=== PATIENT | female | born 1965 | race Two or more races ===

== ENCOUNTER 2018-12-14 12:37 | Emergency (ER) | payer BC, OTHER ==
[2018-12-14 12:55] VITALS: BP 149/89; PULSE 69; TEMP 98; BMI 27.4
--- NOTE | 2018-12-14 13:21 | PDOC ---
History of Present Illness - General Chief Complaint: Injury Stated Complaint: FALL/HEAD INJURY Time Seen by Provider: 12/14/18 12:56 History Source: Patient Exam Limitations: No Limitations Past History - Past Medical History Allergies/Adverse Reactions: Allergies Allergy/AdvReac Type Severity Reaction Status Date / Time amoxicillin [Amoxicillin] Allergy Mild GI upset Verified 12/14/18 12:48 ibuprofen [From Motrin] Allergy Verified 12/14/18 12:48 Home Medications: Ambulatory Orders Acetaminophen [Tylenol .Extra-Strength -] 1,000 mg PO Q6H PRN #0 tablet Multivitamin [Multi-Day Vitamins] 1 each PO DAILY #0 tablet 05/05/12 Atorvastatin Ca [Lipitor] 80 mg PO HS 12/14/18 Dulaglutide [Trulicity] 0.75 mcg IM ASDIR 12/14/18 Fluticasone/Salmeterol [Advair Hfa 115-21 Mcg Inhaler] 1 inh PO BID 12/14/18 Redwood 3,6,9 Combination No.7 [Redwood Dha] 1 tab PO DAILY 12/14/18 Sitagliptin Phosphate [Januvia -] 100 mg PO DAILY@0700 12/14/18 Asthma: Yes COPD: No Diabetes: Yes GI Disorders: Yes (IBS, DIVERTICULITIS, SPASTIC COLON) - Immunization History Immunization Up to Date: No - Psycho Social/Smoking Cessation Hx Smoking Status: No Smoking History: Unknown if ever smoked Have you smoked in the past 12 months: No Number of Cigarettes Smoked Daily: 0 Hx Alcohol Use: No Drug/Substance Use Hx: No Substance Use Type: None Hx Substance Use Treatment: No *Physical Exam - Vital Signs Last Vital Signs Temp Pulse Resp BP Pulse Ox 98 F 69 16 149/89 99 12/14/18 12:48 12/14/18 12:48 12/14/18 12:48 12/14/18 12:48 12/14/18 12:48 - Physical Exam General Appearance: No: Apparent Distress HEENT: positive: EOMI, ZAHIRA, Other (large skin abrasion and swelling along R forehead, no laceration; no pain on eye movement, neg Ledesma's sign, no raccoon eyes) Neck: positive: Supple. negative: Rigid, Tender midline Respiratory/Chest: positive: Lungs Clear, Normal Breath Sounds. negative: Respiratory Distress Cardiovascular: positive: Regular Rhythm, Regular Rate, S1, S2. negative: Murmur Extremity: positive: Normal Range of Motion, Other (FROM of R shoulder, slight pain with movement of R wrist but no deformity, swelling or ecchymosis noted, negative snuffbox tenderness; small abrasion of L knee, FROM of L knee, no swelling) Neurologic: positive: internal communications manager II-XII NML intact, Fully Oriented, Alert, Normal Mood/ Affect, Motor Strength 5/5, Other (normal gait) ED Treatment Course - RADIOLOGY Radiology Studies Ordered: Category Date Time Status SHOULDER-RIGHT [RAD] Stat Radiology 12/14/18 13:09 Ordered WRIST- RIGHT [RAD] Stat Radiology 12/14/18 13:09 Ordered Medical Decision Making - Medical Decision Making 53 y/o F hx of asthma, DM, IBS presents s/p fall yesterday morning. Patient's foot got caught in rain trap (used in grocery store), causing her to fall forward, hitting her head. Denies LOC. Is c/o R shoulder, R wrist and mild L knee pain. Is not on blood thinners. Denies visual/gait changes, pain on eye movement, sob, cp, abd pain, vomiting, numbness/tingling/weakness of extremities. Not suspicious for ICH Patient meets no criteria for [place] head CT rules Plan: xray to r/o fracture 12/14/18 13:18 xrays negative for fracture abrasion covered with bacitracin R wrist patircia-wrapped for comfort 12/14/18 14:09 Discharge - Discharge Information Problems reviewed: Yes Clinical Impression/Diagnosis: Fall Qualifiers: Encounter type: initial encounter Qualified Code(s): W19.XXXA - Unspecified fall, initial encounter Condition: Stable Disposition: HOME - Admission No - Additional Discharge Information Prescription Drug Monitoring Program (I-STOP) results: I-STOP not reviewed - Follow up/Referral - Patient Discharge Instructions Patient Printed Discharge Instructions: DI for Abrasion Additional Instructions: Thank you for choosing [facility]. It was a pleasure taking care of you. You may apply Bacitracin or neosporin over sites of abrasion Ice site of swelling Follow-up with your doctor in 2 days Return to the Emergency Department if your symptoms worsen or persist, you have vomiting, weakness of extremities (arms and/or legs), changes in vision or walking or other concerning symptoms. - Post Discharge Activity
== END 2018-12-14 14:26 | disposition home or self-care (01) ==
LOC: JERFT 12:37
DX: Z04.3 Encounter for examination and observation following other accident (principal); W18.09XA Striking against other object with subsequent fall, initial encounter; Y93.89 Activity, other specified; Y92.512 Supermarket, store or market as the place of occurrence of the external cause; E11.9 Type 2 diabetes mellitus without complications; K58.9 Irritable bowel syndrome, unspecified; J45.909 Unspecified asthma, uncomplicated
CPT/HCPCS: 73030-TC-RT-FY; 73110-TC-RT-FY; 99281-25